=== PATIENT | female | born 1995 | race Caucasian/White ===

== ENCOUNTER 2017-01-12 17:31 | Emergency (ER) | payer OTHER ==
[2017-01-12 17:42] VITALS: BP 123/90
[2017-01-12] MEDS ORDERED: Ondansetron ODT TAB* 4 MG PO ONE (18:04)
--- NOTE | 2017-01-12 18:14 | UC ---
- HPI Summary HPI Summary: Pt presents to with her Aunt. Pt recently moved to [place]. Pt reports is approx 10 weeks . Pt states has been having nausea and vomiting throughout her . Pt has Rx Reglan and Zofran prescribed from an ED out of town. Pt states these are not helping - last dose of either was yesterday. Pt states now has epigastric burning. Pt denies cp, sob. Pt with upper abdominal pain. Denies dysuria. + little UOP today. Pt does not have a local subacute nurse/pcp. . LMP November 2016. Pt states has had an ultrasound to confirm IUP at out of town facility. Pt's medications reviewed at this visit - History of Current Complaint Chief Complaint: UCGI Stated Complaint: ABD PAIN,10 WEEKS PREG,VOMITING Time Seen by Provider: 01/12/17 17:48 Hx Obtained From: Patient Onset/Duration: Started Days Ago Timing: Constant Severity: Moderate Current Severity: Moderate Location of Pain: Other: - epigastric Character: Burning Associated Signs and Symptoms: Positive: Vomiting. Negative: Fever, Urinary Symptoms, Vaginal Bleeding or Discharge - Assessment Hx Now: Yes - Allergies/Home Medications Allergies/Adverse Reactions: Allergies Allergy/AdvReac Type Severity Reaction Status Date / Time No Known Allergies Allergy Verified 01/12/17 17:41 Home Medications: Home Medications Metoclopramide TAB* [Reglan TAB*] 10 mg PO Q6H PRN 01/12/17 [History Confirmed 01/12/17] Ondansetron HCl [Zofran 4 MG TAB] 4 mg PO 01/12/17 [History] Vitamin [Calna] 1 tab PO 01/12/17 [History] PMH/Surg Hx/FS Hx/Imm Hx Previously Healthy: Yes - Surgical History Surgery Procedure, Year, and Place: t&a Hx Anesthesia Reactions: No Infectious Disease History: No Infectious Disease History: Denies: Traveled Outside the [place] in Last 30 Days - Family History Known Family History: Positive: Respiratory Disease - asthma - Social History Occupation: Unemployed Lives: With Family Alcohol Use: None Substance Use Type: Reports: None Smoking Status (MU): Never Smoked Tobacco Review of Systems Constitutional: Negative Skin: Negative Eyes: Negative ENT: Negative Respiratory: Negative Cardiovascular: Negative Gastrointestinal: Abdominal Pain, Vomiting, Nausea Genitourinary: Negative Motor: Negative Neurovascular: Negative Musculoskeletal: Negative Neurological: Negative Psychological: Negative All Other Systems Reviewed And Are Negative: Yes Physical Exam - Physical Exam Triage Information Reviewed: Yes Vital Signs Reviewed: Yes Appearance: Negative: Well-Nourished - Pt with persistent vomiting fatigue Skin: Positive: Warm, Skin Color Reflects Adequate Perfusion, Dry Head/Face: Positive: Normal Head/Face Inspection, Other - mm pasty Eyes: Positive: Normal, EOMI, RITIKA ENT: Positive: Normal ENT inspection, Pharynx normal, TMs normal Neck: Positive: Supple, Nontender, No Lymphadenopathy Respiratory/Lung Sounds: Positive: Clear to Auscultation, Breath Sounds Present , Decreased Breath Sounds, Wheezes Cardiovascular: Positive: Normal, RRR - borderline tachy. Negative: Murmur Abdomen Description: Positive: Nontender, No Organomegaly, Soft Bowel Sounds: Positive: Present Musculoskeletal: Positive: Normal, Strength/ROM Intact Neurological: Positive: Normal, Sensory/Motor Intact, Alert, Oriented to Person Place, Time Psychiatric: Positive: Normal AVPU Assessment: Alert - [place] Coma Scale Eye: 4 - Spontaneous Motor: 6 - Obeys Commands Verbal: 5 - Oriented Coma Scale Total: 15 Course/Dx - Course Assessment/Plan: Pt with persistent nausea and vomiting with . Pt has zofran and Reglan at home with little improvement - last dose yesterday. Pt has not had treatment in [place] - recently moved here. Urine with 4+ ketone. recommend pt to ED for IVF and likely labs - concern for hypokalemia and hypomagnesia with emesis. Pt in agreement with plan. Aunt will drive pt. will give dose of ODT zofran prior to discharge - Diagnoses Provider Diagnoses: Hyperemesis, Vomiting Discharge - Discharge Plan Condition: Stable Disposition: [facility] Patient Education Materials: Hyperemesis Gravidarum (ED) Additional Instructions: - Go directly to the emergency department at [facility] - they will be expecting you. - do NOT drink or eat anything before you evaluation at the hospital - of your symptoms change or you have any other questions or concerns, pull tab dealer and call [phone]
== END 2017-01-12 18:13 | disposition short-term general hospital (02) ==
LOC: UCEAST 17:31
DX: O21.0 Mild hyperemesis gravidarum (principal); R10.13 Epigastric pain; Z3A.10 10 weeks gestation of pregnancy
CPT/HCPCS: 81003; 84702; 99202; A9270-GY; G0463

== ENCOUNTER 2017-01-12 18:30 | Emergency (ER) | payer OTHER ==
[2017-01-12 18:44] VITALS: BP 132/77
[2017-01-12] MEDS ORDERED: Ondansetron INJ* 2 MG/ML VIAL IV ONE (20:06)
[2017-01-12] MEDS ORDERED: NS 0.9% 1000 ML* 1,000 ML IV ONE (20:06)
[2017-01-12 20:48] LABS: Urine Bacteria 1+ (Absent); Urine Bilirubin Negative (Negative); Urine Glucose 1+(50 mg/dL) (Negative); Urine Nitrite Negative (Negative)
[2017-01-12 20:56] LABS: Hematocrit 36 % (35-47); Hemoglobin 12.7 g/dl (12.0-16.0); Mean Corpuscular HGB Conc 36 g/dl (31-36); Mean Corpuscular Hemoglobin 30 pg (27-31); Mean Corpuscular Volume 83 fL (80-97); Mean Platelet Volume 7 um3 (7.4-10.4); Red Blood Count 4.33 10^6/ul (4.0-5.4); Red Cell Distribution Width 14 % (10.5-15)
[2017-01-12 20:59] LABS: Comments Flag Yes
[2017-01-12 21:00] LABS: Add Diff/Slide Review? Slide Review Added
[2017-01-12 21:14] LABS: ALT 11 U/L (7-52); AST 14 U/L (13-39); Albumin 4.4 g/dL (3.2-5.2); Alkaline Phosphatase 37 U/L (34-104); BUN/Creatinine Ratio 37.1 (8-20); Blood Urea Nitrogen 13 mg/dL (6-24); C Reactive Protein < 1.00 mg/L (< 5.00); CO2 Carbon Dioxide 23 mmol/L (22-32); Calcium 9.7 mg/dL (8.6-10.3); Chloride 98 mmol/L (101-111); EGFR African American 305.3 (>60); EGFR Non-African American 237.4 (>60); Globulin 2.7 g/dL (2-4); Glucose 101 mg/dL (70-100); Magnesium 1.8 mg/dL (1.9-2.7); Sodium 132 mmol/L (133-145); Total Protein 7.1 g/dL (6.4-8.9)
[2017-01-12 21:15] LABS: Anion Gap 11 mmol/L (2-11); Potassium 2.7 mmol/L (3.5-5.0)
--- NOTE | 2017-01-12 22:21 | ED ---
- HPI Summary HPI Summary: Patient is a 21yo 10 week by abdominal US otherwise healthy F presents to the Ed with CC nausea and vomiting in which has been present constantly x 3 weeks. She has been taking zofran and reglan intermittently without relief. She states she feels very dehydrated and is afraid because she is not able to keep anything down. She is vomiting up both solids and liquids. She states the N/V is worse in the morning and better at night. She vomits immediately after rising. She denies hematemesis. She denies constipation, diarrhea, vaginal bleeding or discharge, BARAJAS. She notes to some GERD symptoms and LLQ pain which is worse after vomiting. Denies RLQ pain or RUQ pain. Urinary symptoms include difficulty maintaining a stream, which she feels is d/ t her dehydration. [facility] d/t cramping and abdominal pain. Abdominal US showed 9 week IUP with no abnormalities or ectopics. She is currently not taking any medications. - History of Current Complaint Chief Complaint: EDOBProblems Stated Complaint: 10 WKS PREG/VOMITING/ABD PAIN Time Seen by Provider: 01/12/17 21:46 Hx Obtained From: Patient Chief Complaint: Concern for Embryonic Dem, Pain, Other: - n/v Onset/Duration: Started Weeks Ago Timing: Constant Severity: Moderate Current Severity: Moderate Pain Intensity: 0 Location of Pain: Left Side - LLQ pain Character: Cramping, Sharp Aggravating Factors: Urination Alleviating Factors: Heat Associated Signs and Symptoms: Positive: Urinary Symptoms - Assessment Hx Now: Yes - Allergies/Home Medications Allergies/Adverse Reactions: Allergies Allergy/AdvReac Type Severity Reaction Status Date / Time No Known Allergies Allergy Verified 01/12/17 18:41 PMH/Surg Hx/FS Hx/Imm Hx Previously Healthy: Yes - Surgical History Surgery Procedure, Year, and Place: t&a Hx Anesthesia Reactions: No - Immunization History Hx Pertussis Vaccination: No Immunizations Up to Date: Unable to Obtain/Confirm Infectious Disease History: No Infectious Disease History: Denies: Traveled Outside the [place] in Last 30 Days - Family History Known Family History: Positive: Respiratory Disease - asthma - Social History Occupation: Unemployed Lives: With Family Alcohol Use: None Hx Substance Use: No Substance Use Type: Reports: None Hx Tobacco Use: No Smoking Status (MU): Never Smoked Tobacco Review of Systems Constitutional: Negative Eyes: Negative Positive: Chest Pain - feelings of midsternal chest pain along the epigastric border Positive: Abdominal Pain, Vomiting, Nausea Positive: see HPI, dysuria, urgency Musculoskeletal: Negative Skin: Negative Positive: Weakness Psychological: Normal All Other Systems Reviewed And Are Negative: Yes Physical Exam - Physical Exam Triage Information Reviewed: Yes Vital Signs Reviewed: Yes Appearance: Positive: Well-Appearing, No Pain Distress, Well-Nourished Skin: Positive: Warm, Skin Color Reflects Adequate Perfusion Head/Face: Positive: Normal Head/Face Inspection Eyes: Positive: EOMI, RITIKA, Conjunctiva Clear Cardiovascular: Positive: Normal, RRR, Pulses are Symmetrical in both Upper and Lower Extremities Abdomen Description: Positive: Soft - no pain on palpation. Negative: Nontender , No Organomegaly, Distended, Guarding, McBurney's Point Tenderness Musculoskeletal: Positive: Strength/ROM Intact Neurological: Positive: Sensory/Motor Intact, Alert, Oriented to Person Place, Time, Speech Normal Psychiatric: Positive: Normal AVPU Assessment: Alert Diagnostics - Vital Signs Vital Signs Temp Pulse Resp BP Pulse Ox 01/12/17 20:34 98.5 F 102 20 132/77 98 01/12/17 18:42 98.5 F 102 20 132/77 98 - Laboratory Lab Results: Lab Results 01/12/17 01/12/17 01/12/17 Range/Units 20:30 20:47 20:47 WBC 16.0 H (3.5-10.8) 10^3/ul RBC 4.33 (4.0-5.4) 10^6/ul Hgb 12.7 (12.0-16.0) g/dl Hct 36 (35-47) % MCV 83 (80-97) fL MCH 30 (27-31) pg MCHC 36 (31-36) g/dl RDW 14 (10.5-15) % Plt Count 298 (150-450) 10^3/ul MPV 7 L (7.4-10.4) um3 Neut % (Auto) 79.9 (38-83) % Lymph % (Auto) 9.9 L (25-47) % [place] % (Auto) 10.0 H (1-9) % Eos % (Auto) 0 (0-6) % Baso % (Auto) 0.2 (0-2) % Absolute Neuts (auto) 12.8 H (1.5-7.7) 10^3/ul Absolute Lymphs (auto) 1.6 (1.0-4.8) 10^3/ul Absolute Monos (auto) 1.6 H (0-0.8) 10^3/ul Absolute Eos (auto) 0 (0-0.6) 10^3/ul Absolute Basos (auto) 0 (0-0.2) 10^3/ul Absolute Nucleated RBC 0 10^3/ul Nucleated RBC % 0 Sodium 132 L (133-145) mmol/L Potassium 2.7 L* (3.5-5.0) mmol/L Chloride 98 L (101-111) mmol/L Carbon Dioxide 23 (22-32) mmol/L Anion Gap 11 (2-11) mmol/L BUN 13 (6-24) mg/dL Creatinine 0.35 L (0.51-0.95) mg/dL Est GFR ( Amer) 305.3 (>60) Est GFR (Non-Af Amer) 237.4 (>60) BUN/Creatinine Ratio 37.1 H (8-20) Glucose 101 H (70-100) mg/dL Lactic Acid (0.5-2.0) mmol/L Calcium 9.7 (8.6-10.3) mg/dL Magnesium 1.8 L (1.9-2.7) mg/dL Total Bilirubin 1.10 H (0.2-1.0) mg/dL AST 14 (13-39) U/L ALT 11 (7-52) U/L Alkaline Phosphatase 37 (34-104) U/L C-Reactive Protein < 1.00 (< 5.00) mg/L Total Protein 7.1 (6.4-8.9) g/dL Albumin 4.4 (3.2-5.2) g/dL Globulin 2.7 (2-4) g/dL Albumin/Globulin Ratio 1.6 (1-3) Beta HCG, Quant 354295.00 mIU/mL Urine Color Yellow Urine Appearance Cloudy Urine pH 5.0 (5-9) Ur Specific [place] 1.033 H (1.010-1.030) Urine Protein 2+(100 mg/dl) H (Negative) Urine Ketones 2+ H (Negative) Urine Blood Negative (Negative) Urine Nitrate Negative (Negative) Urine Bilirubin Negative (Negative) Urine Urobilinogen Negative (Negative) Ur Leukocyte Esterase Trace H (Negative) Urine WBC (Auto) 1+(6-10/hpf) H (Absent) Urine RBC (Auto) Absent (Absent) Ur Squamous Epith Cells Present H (Absent) Urine Bacteria 1+ H (Absent) Urine Glucose 1+(50 mg/dl) H (Negative) 01/12/17 Range/Units 20:47 WBC (3.5-10.8) 10^3/ul RBC (4.0-5.4) 10^6/ul Hgb (12.0-16.0) g/dl Hct (35-47) % MCV (80-97) fL MCH (27-31) pg MCHC (31-36) g/dl RDW (10.5-15) % Plt Count (150-450) 10^3/ul MPV (7.4-10.4) um3 Neut % (Auto) (38-83) % Lymph % (Auto) (25-47) % [place] % (Auto) (1-9) % Eos % (Auto) (0-6) % Baso % (Auto) (0-2) % Absolute Neuts (auto) (1.5-7.7) 10^3/ul Absolute Lymphs (auto) (1.0-4.8) 10^3/ul Absolute Monos (auto) (0-0.8) 10^3/ul Absolute Eos (auto) (0-0.6) 10^3/ul Absolute Basos (auto) (0-0.2) 10^3/ul Absolute Nucleated RBC 10^3/ul Nucleated RBC % Sodium (133-145) mmol/L Potassium (3.5-5.0) mmol/L Chloride (101-111) mmol/L Carbon Dioxide (22-32) mmol/L Anion Gap (2-11) mmol/L BUN (6-24) mg/dL Creatinine (0.51-0.95) mg/dL Est GFR ( Amer) (>60) Est GFR (Non-Af Amer) (>60) BUN/Creatinine Ratio (8-20) Glucose (70-100) mg/dL Lactic Acid 1.2 (0.5-2.0) mmol/L Calcium (8.6-10.3) mg/dL Magnesium (1.9-2.7) mg/dL Total Bilirubin (0.2-1.0) mg/dL AST (13-39) U/L ALT (7-52) U/L Alkaline Phosphatase (34-104) U/L C-Reactive Protein (< 5.00) mg/L Total Protein (6.4-8.9) g/dL Albumin (3.2-5.2) g/dL Globulin (2-4) g/dL Albumin/Globulin Ratio (1-3) Beta HCG, Quant mIU/mL Urine Color Urine Appearance Urine pH (5-9) Ur Specific [place] (1.010-1.030) Urine Protein (Negative) Urine Ketones (Negative) Urine Blood (Negative) Urine Nitrate (Negative) Urine Bilirubin (Negative) Urine Urobilinogen (Negative) Ur Leukocyte Esterase (Negative) Urine WBC (Auto) (Absent) Urine RBC (Auto) (Absent) Ur Squamous Epith Cells (Absent) Urine Bacteria (Absent) Urine Glucose (Negative) Result Diagrams: 01/12/17 20:47 01/13/17 01:50 Lab Statement: Any lab studies that have been ordered have been reviewed, and results considered in the medical decision making process. Course/Dx - Course Course Of Treatment: Patient evaluated for possible ectopic d/t LLQ pain and also for hyperemesis gravidarum affecting . She has been taking zofran an reglan at home without relief. She is given zofran IV 4 mg in the ED with effect and denies any symptoms currently. WBC elevated at 106.0; hypokalemia noted at 2.7 and patient given 40meq potassium chloride at 11:40p; 12:20am and redraw of blood at 2am (per Dr. Trevino) shows: 2.7 to 3.2. US shows IUP with estimated age 10 weeks 3 ays, without definate abnormality. UA insignificant. Denies fevers, sweats or chills. Slight pain on palpation in the LLQ. Wood's sign negative, no mcburney's point tenderness. No surgical history or vaginal bleeding. HCG count appropriate for weeks . DD - torsion, cyst, ectopic, hyperemesis gravidarum and associated abdominal pain; PID; TOA; sharmin; BV. No diarrhea, constipation or back pain. No vaginal discharge. Deferred pelvic examination based on history and symptoms. Unlikely torsion d/t 3 weeks of LLQ pain which has been intermittent. This pain is not different today and has not changed. She is given Reglan here in ED prior to discharge and rx sent to home. Follow up with OBGYN given and encouraged potassium rich foods. - Differential Diagnosis/HQI/PQRI: Eclampsia, Preeclampsia, Early - Diagnoses Provider Diagnoses: Nausea/vomiting in Discharge - Discharge Plan Condition: Stable Disposition: HOME Prescriptions: Metoclopramide TAB* [Reglan TAB*] 10 mg PO Q6H #30 tab MDD 4 Patient Education Materials: Nausea and Vomiting in (ED), Hypokalemia (ED) Referrals: Donavan Canales MD [Medical Doctor] - No Primary Care Phys,NOPCP [Primary Care Provider] - Additional Instructions: Eat foods which are rich in potassium Drink plenty of gatorade and get plenty of fluids Follow up with OBGYN I have given you a referral - please call tomorrow and set an appt as a new patient. Reglan only as needed for nausea and vomiting Before getting out of bed in the morning, eat some crackers and drink water ( place on your night stand)
[2017-01-12] MEDS: NS 0.9% 1000 ML* 2,000 ML IV ONE ×2 (22:30→22:35)
[2017-01-12] MEDS ORDERED: Potassium Chlor TAB* 20 MEQ TAB.ER PO ONE ×2 (23:24→23:48)
[2017-01-13] MEDS ORDERED: Potassium Chlor TAB* 20 MEQ TAB.ER PO ONE (00:31)
[2017-01-13] MEDS ORDERED: Metoclopramide TAB* 10 MG PO ONE (02:27)
--- NOTE | 2017-01-13 07:36 | RAD ---
INDICATION: Left-sided pelvic pain, . COMPARISON: There are no prior studies available for comparison. TECHNIQUE: Multiple real-time transvaginal images of the pelvis were obtained. FINDINGS: This exam demonstrates an early intrauterine . A pole and yolk sac are visualized. The heart rate was 163 beats per minute. The crown-rump length measured 3.44 cm corresponding to an estimated gestational age of 10 weeks 3 days. The mean sac diameter measured 4.6 cm corresponding to an estimate gestational age of 10 weeks 3 days. The right ovary measured 2.6 x 2.0 x 2.4 cm. The left ovary measured 2.6 x 1.0 x 1.9 cm. There is vascular flow within both ovaries. No free intraperitoneal fluid is seen. IMPRESSION: EARLY INTRAUTERINE WITH AN ESTIMATED GESTATIONAL AGE OF 10 WEEKS 3 DAYS.
== END 2017-01-13 03:01 | disposition home or self-care (01) ==
LOC: ED 18:30
DX: O21.9 Vomiting of pregnancy, unspecified (principal); R10.32 Left lower quadrant pain; R07.9 Chest pain, unspecified; R53.1 Weakness; Z3A.10 10 weeks gestation of pregnancy
CPT/HCPCS: 36415; 76801; 80053; 81003; 81015; 83605; 83735; 84132; 84702; 85025; 86140; 87086; 96361; 96374; 99282; A9270-GY; J2405